=== PATIENT | female | born 1970 | race Caucasian/White ===

== ENCOUNTER → 2024-03-25 16:48 | Outpatient (REF) | payer BC, SELFPAY | LOC: RAD 16:48 | PROVIDERS: ATTENDING PHYSICIAN Internal Medicine | DX: M54.31 Sciatica, right side (principal); M25.561 Pain in right knee; G89.29 Other chronic pain | CPT/HCPCS: 72110; 73564 ==

== ENCOUNTER → 2024-03-26 06:39 | Outpatient (REF) | payer BC, SELFPAY ==
[2024-03-26 08:50] LABS: Hepatitis C Antibody Negative (Negative)
== END ==
LOC: REG 06:39
PROVIDERS: ATTENDING PHYSICIAN Internal Medicine
DX: Z11.59 Encounter for screening for other viral diseases (principal)
CPT/HCPCS: 36415; 86803

== ENCOUNTER → 2024-04-02 06:48 | Outpatient (REF) | payer BC, SELFPAY ==
[2024-04-02 07:53] LABS: % Eosinophils 7.2 % (0-6); % Immature Granulocytes 0.3 % (0-0.5); % Lymphocytes 34.8 % (20.5-51.1); % Monocytes 7.2 % (1.7-9.3); % Neutrophils 49.5 % (42.2-75.2); Absolute Basophils 0.1 10^3/uL (0-0.2); Absolute Eosinophils 0.5 10^3/uL (0-0.7); Absolute Lymphocytes 2.3 10^3/uL (1.2-3.4); Absolute Monocytes 0.5 10^3/uL (0.1-0.6); Absolute Neutrophils 3.3 10^3/uL (1.4-6.5); Hematocrit 35.3 % (37.0-47.0); Hemoglobin 11.8 g/dL (12.0-16.0); Mean Corp Hgb Conc. 33.4 g/dL (33.0-37.0); Mean Corpuscular Hgb 30.3 pg (27.0-31.0); Mean Corpuscular Volume 90.5 fL (81.0-99.0); Mean Platelet Volume 10.4 fL (7.4-10.4); Nucleated Red Blood Cells % 0 %; Platelet Count 267 10^3/uL (130-400); Red Cell Dist. Width 13.4 % (11.5-14.5); White Blood Cell Count 6.7 10^3/uL (4.8-10.8)
[2024-04-02 08:18] LABS: ALT (SGPT) 20 U/L (0-35); AST (SGOT) 21 U/L (14-36); Albumin 4.3 g/dl (3.5-5.0); Alkaline Phosphatase 69 U/L (38-126); Blood Urea Nitrogen 25 mg/dl (7-17); Calcium 10.2 mg/dl (8.4-10.2); Carbon Dioxide 31 mmol/L (22-30); Chloride 101 mmol/L (98-107); Glucose 107 mg/dl (70-99); HDL Cholesterol 64 mg/dl; LDL Cholesterol, Calculated 181 mg/dl; Potassium 4.7 mmol/L (3.5-5.1); Sodium 142 mmol/L (135-145); Total Bilirubin 0.8 mg/dl (0.2-1.3); Total Cholesterol 276 mg/dl (50-199); Total Protein 7.2 g/dl (6.3-8.2); Triglyceride 156 mg/dl (10-149); Very Low Density Lipoprotein 31 mg/dl (0-30); eGFR > 60.00
[2024-04-02 09:03] LABS: TSH 2.52 uIU/ml (0.47-4.68)
[2024-04-02 09:39] LABS: Glycohemoglobin (HgbA1c) 5.8 % (4.0-5.6)
== END ==
LOC: REG 06:48
PROVIDERS: ATTENDING PHYSICIAN Internal Medicine
DX: I10 Essential (primary) hypertension (principal); E66.01 Morbid (severe) obesity due to excess calories; R73.03 Prediabetes; E78.00 Pure hypercholesterolemia, unspecified
CPT/HCPCS: 36415; 80053; 80061; 83036; 84443; 85025

== ENCOUNTER 2024-08-09 07:42 | Day surgery (SDC) | payer BC, SELFPAY ==
[2024-07-21 08:52] LABS: Hematocrit 38.1 % (37.0-47.0); Hemoglobin 12.6 g/dL (12.0-16.0); Mean Corp Hgb Conc. 33.1 g/dL (33.0-37.0); Mean Corpuscular Volume 93.6 fL (81.0-99.0); Mean Platelet Volume 10.7 fL (7.4-10.4); Platelet Count 275 10^3/uL (130-400); Red Blood Cell Count 4.07 10^6/uL (4.20-5.40); Red Cell Dist. Width 12.6 % (11.5-14.5); White Blood Cell Count 7.5 10^3/uL (4.8-10.8)
[2024-07-21 09:38] LABS: ALT (SGPT) 22 U/L (0-35); AST (SGOT) 21 U/L (14-36); Albumin 4.3 g/dl (3.5-5.0); Alkaline Phosphatase 64 U/L (38-126); Blood Urea Nitrogen 22 mg/dl (7-17); Calcium 9.8 mg/dl (8.4-10.2); Carbon Dioxide 29 mmol/L (22-30); Chloride 97 mmol/L (98-107); Glucose 101 mg/dl (70-99); HDL Cholesterol 50 mg/dl; LDL Cholesterol, Calculated 74 mg/dl; Sodium 136 mmol/L (135-145); Total Bilirubin 0.6 mg/dl (0.2-1.3); Total Cholesterol 154 mg/dl (50-199); Total Protein 7.3 g/dl (6.3-8.2); Triglyceride 153 mg/dl (10-149); Very Low Density Lipoprotein 30 mg/dl (0-30); eGFR > 60.00
[2024-07-21 13:05] VITALS: BMI 40.9
--- NOTE | 2024-07-26 15:49 | VNURNOTE ---
Patient is scheduled for an elective R JUVENCIO on 08/09/24- she is a same day patient with Dr Patel. Spoke with patient prior to surgery. Introduced role of [facility] Liaison. Patient reports that she lives with her spouse in a MULTI story home.
There are 3 steps to enter and a flight of steps to the second floor.
There is a bathroom on the [place] ranger and a recliner that patient plans on sleeping in for a few nights. She currently functions independently. She has a raised toilet seat, cane and rollator.
PCP is Dr Omer.
Discussed [facility] joint protocol and post surgical plans.
Reviewed that she will have [facility] services initially and will then start outpatient PT.
Patient selects [facility] for home care needs and [facility]. Scheduled for 08/13/24.
Patient is in agreement with plan and states that spouse and son will be home with her. Advised to bring RW with her day of surgery. Referral placed in [facility].
Plan: [facility] per [facility] joint protocol then outpt PT on 08/13/24
[2024-08-09] VITALS (14 sets, daily range): BP systolic 106–164; BP diastolic 49–89; PULSE 92; O2SAT 96
[2024-08-09] MEDS: TYLENOL 650 MG PO (09:02)
[2024-08-09] MEDS: CELEBREX 200 MG PO (09:02)
[2024-08-09] MEDS: NORMOSOL-R/PLASMALYTE-A 1000 IV (09:11)
--- NOTE | 2024-08-09 11:56 | W.DS.TRANS ---
DC Summary - Manager Relocation
-
Discharge Instructions:
Discharge Diagnosis/Procedures R JUVENCIO Dr. Patel 08/09/24
Diet As tolerated
Activity With Walker
Driving Restrictions No driving
Bathing Restrictions OK to Shower
Other Services PT
Instructions:
Stand-Alone Forms: SDS Total Hip and Knee D/C
Changes to Home Medications: Yes
Discharge Medications:
DC Medications w/original date entered in [facility]
atorvastatin 20 mg tablet 20 mg PO HS 08/03/24
carvedilol 25 mg tablet 25 mg PO BID 08/03/24
cholecalciferol (vitamin D3) 25 mcg (1,000 unit) capsule (Vitamin D3) 25 mcg PO DAILY 08/03/24
hydrochlorothiazide 25 mg tablet 25 mg PO DAILY 08/03/24
irbesartan 150 mg tablet 150 mg PO DAILY 08/03/24
multivitamin 1 tab PO DAILY 08/03/24
mupirocin 2 % topical ointment 1 applic topical BID 08/03/24
Saccharomyces boulardii 250 mg capsule (Florastor) 250 mg PO BID #1 cap 08/09/24
acetaminophen 325 mg tablet (Tylenol) 650 mg (2 x 325 mg) PO QID #1 tab 08/09/24
aspirin 325 mg tablet 325 mg PO DAILY blood clot prevention #1 tab 08/09/24
cefadroxil 500 mg capsule 500 mg PO BID infection prevention #14 caps 08/09/24
celecoxib 100 mg capsule 100 mg PO BID Anti-inflammatory #14 caps 08/09/24
dexamethasone 4 mg tablet 4 mg PO BID inflammation #6 tabs 08/09/24
docusate sodium 100 mg capsule (Colace) 100 mg PO BID stool softner #1 cap 08/09/24
magnesium hydroxide 400 mg/5 mL oral suspension (Milk of Magnesia) 30 ml PO HS PRN Constipation #1 mL 08/09/24
ondansetron 4 mg disintegrating tablet 4 mg PO Q6H PRN n/v #20 tabs 08/09/24
oxycodone 5 mg tablet 5 mg PO Q6H PRN 1 tab moderate pain, 2 tabs severe pain #30 tabs 08/09/24
sennosides 8.6 mg tablet (Senokot) 17.2 mg (2 x 8.6 mg) PO BID laxative #2 tabs 08/09/24
Home Medication Changes
Saccharomyces boulardii 250 mg capsule (Florastor) 250 mg PO BID #1 cap 08/09/24
acetaminophen 325 mg tablet (Tylenol) 650 mg (2 x 325 mg) PO QID #1 tab 08/09/24
aspirin 325 mg tablet 325 mg PO DAILY blood clot prevention #1 tab 08/09/24
cefadroxil 500 mg capsule 500 mg PO BID infection prevention #14 caps 08/09/24
celecoxib 100 mg capsule 100 mg PO BID Anti-inflammatory #14 caps 08/09/24
dexamethasone 4 mg tablet 4 mg PO BID inflammation #6 tabs 08/09/24
docusate sodium 100 mg capsule (Colace) 100 mg PO BID stool softner #1 cap 08/09/24
magnesium hydroxide 400 mg/5 mL oral suspension (Milk of Magnesia) 30 ml PO HS PRN Constipation #1 mL 08/09/24
ondansetron 4 mg disintegrating tablet 4 mg PO Q6H PRN n/v #20 tabs 08/09/24
oxycodone 5 mg tablet 5 mg PO Q6H PRN 1 tab moderate pain, 2 tabs severe pain #30 tabs 08/09/24
sennosides 8.6 mg tablet (Senokot) 17.2 mg (2 x 8.6 mg) PO BID laxative #2 tabs 08/09/24
Pending Results: No
[2024-08-09] MEDS: ANCEF 5 IV (15:27)
== END 2024-08-09 16:15 | disposition home or self-care (01) ==
LOC: SDS 07:42
PROVIDERS: ATTENDING PHYSICIAN Specialist; FAMILY PHYSICIAN Internal Medicine; REFERRING PHYSICIAN Internal Medicine Interventional Cardiology
DX: M16.11 Unilateral primary osteoarthritis, right hip (principal); Z68.41 Body mass index [BMI] 40.0-44.9, adult
CPT/HCPCS: 27130; 36415; 73502; 80053; 80061; 83036; 85027; 87070; 87147; 93005; 97116; 97162; C1713; C1776

== ENCOUNTER 2024-09-03 14:41 | Outpatient (RCR) | payer BC, SELFPAY | END 2024-09-03 23:59 | disposition home or self-care (01) | LOC: RPT 14:41 | PROVIDERS: ATTENDING PHYSICIAN Specialist; FAMILY PHYSICIAN Internal Medicine | DX: Z47.1 Aftercare following joint replacement surgery (principal); Z73.6 Limitation of activities due to disability; M62.81 Muscle weakness (generalized); R26.89 Other abnormalities of gait and mobility; Z96.641 Presence of right artificial hip joint | CPT/HCPCS: 97110; 97112; 97116; 97140; 97162; 97530 ==

== ENCOUNTER 2024-09-29 17:07 | Outpatient (RCR) | payer BC, SELFPAY | END 2024-09-29 23:59 | disposition home or self-care (01) | LOC: RPT 17:07 | PROVIDERS: ATTENDING PHYSICIAN Specialist; FAMILY PHYSICIAN Internal Medicine | DX: Z47.1 Aftercare following joint replacement surgery (principal); Z73.6 Limitation of activities due to disability; M62.81 Muscle weakness (generalized); R26.89 Other abnormalities of gait and mobility; Z96.641 Presence of right artificial hip joint | CPT/HCPCS: 97110; 97112; 97140; 97530 ==

== ENCOUNTER → 2025-03-19 07:48 | Outpatient (REF) | payer BC, SELFPAY ==
[2025-03-19 08:26] LABS: Hematocrit 39.2 % (37.0-47.0); Hemoglobin 12.7 g/dL (12.0-16.0); Mean Corp Hgb Conc. 32.4 g/dL (33.0-37.0); Mean Corpuscular Volume 90.5 fL (81.0-99.0); Nucleated Red Blood Cells % 0 %; Platelet Count 251 10^3/uL (130-400); Red Cell Dist. Width 13.3 % (11.5-14.5)
[2025-03-19 09:15] LABS: ALT (SGPT) 21 U/L (0-35); AST (SGOT) 20 U/L (14-36); Albumin 4.3 g/dl (3.5-5.0); Alkaline Phosphatase 67 U/L (38-126); Blood Urea Nitrogen 14 mg/dl (7-17); Calcium 10.0 mg/dl (8.4-10.2); Carbon Dioxide 31 mmol/L (22-30); Chloride 103 mmol/L (98-107); Glucose 110 mg/dl (70-99); HDL Cholesterol 46 mg/dl; LDL Cholesterol, Calculated 89 mg/dl; Potassium 4.4 mmol/L (3.5-5.1); Sodium 139 mmol/L (135-145); Total Protein 7.2 g/dl (6.3-8.2); Very Low Density Lipoprotein 25 mg/dl (0-30); eGFR > 60.00
[2025-03-19 09:28] LABS: Vitamin D, 25-OH*** 38.7 ng/mL (30-80)
[2025-03-19 09:42] LABS: TSH 1.95 uIU/ml (0.47-4.68)
[2025-03-19 11:11] LABS: Glycohemoglobin (HgbA1c) 5.8 % (4.0-5.6)
== END ==
LOC: REG 07:48
PROVIDERS: ATTENDING PHYSICIAN Internal Medicine
DX: Z00.00 Encounter for general adult medical examination without abnormal findings (principal)
CPT/HCPCS: 36415; 80053; 80061; 82306; 83036; 84443; 85025